=== PATIENT | female | born 1950 | race Caucasian/White ===

== ENCOUNTER 2025-05-30 10:40 | Outpatient (REF) | payer MEDICARE, SELFPAY ==
--- OUTSIDE RECORDS SUMMARY | 2021-02-02 12:28 | XMS_ITS | Encounter Summary ---
Author Organization [facility] Address [address] [place] [address] Phone Care Team Providers Care Fishing Tool Operator Name Role Phone Glendy Bender MD Primary Care Provider [phone] Encounter Details Date Type Department Care Team (Late st Contact Info) Description 02/02/2021 1:28 PM EDT Hospital Encounter [facility] [address] [place] [id number] Surjit Lopez PA [address] [place] [id number] [email or web address] Social History Tobacco Use Types Packs/Day Years Used Date Smoking Tobacco: Former Smokeless Tobacco: Never Alcohol Use Standard Drinks/Week Comments Yes 7 (1 standard drink = 0.6 oz pur e alcohol) 1 per day Education Answer Date Recorded Are you interested in more education? Not on sae e 10/20/2022 Are you concerned about learning? Not on file 10/20/2022 No 10/20/2022 No 10/20/2022 Digital Access Answer Date Recorded No 11/18/2022 No 11/18/2022 Reliable internet access at home? Not on file 11/18/2022 Device with a working camera? Not on file Comments No Sex and Gender Information Value Date Recorded Sex Assigned at Not on file Legal Sex Female 10:04 PM EDT Gender Identity Not on file Sexual Orientation Not on file documented as of this encounter Plan of Treatment Upcoming Encounters Date Type Department Care Team (Late st Contact Info) Description 09/25/2025 10:00 AM EDT Office Visit [facility] Department of Neurology [address] [place] [address] Luis Alberto Perez MBBS [address] [facility] Neurology Dept., 4th [place] [address] [email or web address] documented as of this encounter Procedures Procedure Name Priority Date/Time Associated Diagnosis Comments XR ANKLE 3 OR MORE VIEWS (LEFT) Urgent/patient waiting 02/02/2021 1:38 PM EDT Sprain of left ankle, unspecified ligament, initial encounter documented in this encounter Results * XR ANKLE 3 OR MORE VIEWS (LEFT) (02/02/2021 1:38 PM EDT) Anatomical Region Laterality Modality Ankle Left Computed Radiogr aphy 02/02/2021 1:42 PM EDT Impressions 02/02/2021 1:43 PM EDT No fracture or dislocation. Soft tissue swelling greatest over the lateral malleolus. Narrative 02/02/2021 1:43 PM EDT XR ANKLE 3 OR MORE VIEWS (LEFT) COMPARISON: FINDINGS: No fracture. Normal alignment. Symmetric ankle mortise. Normal joint spaces. Focal soft tissue swelling over the lateral malleolus. Small plantar calcaneal spur. Procedure Note Bernard Carlos MD, PhD - 02/02/2021 XR ANKLE 3 OR MORE VIEWS (LEFT) COMPARISON: FINDINGS: No fracture. Normal alignment. Symmetric ankle mortise. Normal jointspaces. Focal soft tissue swelling over the lateral malleolus. Smallplantar calcaneal spur. IMPRESSION: No fracture or dislocation. Soft tissue swelling greatest over the lateralmalleolus. Surjit JARRETT IMG XR LOWER EXTREMITY [place] Result documented in this encounter Visit Diagnoses Not on filedocumented in this encounter Care Teams Fishing Tool Operator Relationship Specialty Start Date End Date Chikersal, Samridhi, MD [address] [place] [address] [email or web address] PCP - General 10/30/19 11/12/21 documented as of this encounter Additional Source Comments The information contained in this document represents components of the legal health record. It is not the complete legal health record.[facility]
--- OUTSIDE RECORDS SUMMARY | 2024-09-09 06:30 | XMS_ITS ---
Author [facility] Address [address] [place] [address] Care Team Providers Care Caramel Cutter Machine Name Role Phone Shannan GUIDRY, Melissa Primary Care Provider Unavaila Sahil Ludwig Unavailable [phone] Medications Medication SIG (Take, Route, Frequency, Duration) Notes Start Date End Date Status Trileptal Active Vitamin B Complex Ac tive Vitamin D Active Ammonium Lactate 12 % 1 application Externally Twice a day; Duration: 30 days Active Lithobid 300 MG as directed Orally Not-Taking Gabapentin 200mg Act abad Lexapro Active Levothyroxine Sodium Active Latuda 20 MG 1 tablet Orally Once a day Active Metoprolol & Diet Manage Prod Active dilTIAZem HCl 180 mg Orally once a day; Duration: 30 day(s) Not-Taking amLODIPine Besylate Active Aspirin 81 MG 1 tablet Orally Once a day; Duration: 30 day(s) Active Xanax Not-Taking Nightsplint . . . AFO - L1930; Duration: . Not-Taking Vitamin B Complex No t-Taking Encounters Encounter Location Date Provider Diagnosis [facility] [address] [place] [address] 09/09/2024 Sahil Joe Plan Of Treatment Next Appt Details Provider Name:Sahil Joe , 08/11/2025 11:00:00 AM, [address] [place], [address], Progress Notes * Manuel RICKETTSOB:1950 ([age] yo F)Acc No.[id number]:09/09/2024 Progress Note Patient: Peggy JUNE Provider: Jaspreet Joe DPM :1950 A ge:73 Y S ex:Female Date:09/09/2024 Address:[address] [place], [place] [id number] Pcp:Melissa Campbell MD Subjective: * Chief Complaints: * * Medical History: * Medications: T aking amLODIPine Besylate , Taking Aspirin 81 MG Tablet 1 tablet Orally Once a day , Taking Gabapentin 200mg , Taking Lexapro , Taking Levothyroxine Sodium , Taking Latuda 20 MG Tablet 1 tablet Orally Once a day , Taking Metoprolol & Diet Manage Prod , Taking Trileptal , Taking Vitamin B Complex , Taking Vitamin D , Taking Ammonium Lactate 12 % Cream 1 application Externally Twice a day , Not-Taking/PRN Lithobid 300 MG Tablet Extended Release as directed Orally , Not-Taking/PRN Vitamin B Complex , Not-Taking/PRN Xanax , Not-Taking/PRN Nightsplint . . . . AFO - L1930 , Not-Taking/PRN dilTIAZem HCl 180 mg Tablet Orally once a day Objective: * Vitals: Assessment: Plan: * Treatment: * Images: * The named appointment provid er may or may not be the originator of this progress note, and it is not deemed complete until electronically signed by the appointment provider. Sign off status: Pending * Provider: Jaspreet Joe DPM Date: 0 09/09/2024 Generated for Mae allen/James/Desmond on: 1 07/31/2024 10:44 AM EST
--- OUTSIDE RECORDS SUMMARY | 2024-12-02 10:15 | XMS_ITS ---
Author Organization [facility] Address [address] [place] [address] Care Team Providers Care Title I Teacher Name Role Phone Shannan GUIDRY, Melissa Primary Care Provider UnavailSahil Escudero Unavailable [phone] Encounters Encounter Location Date Provider Diagnosis [address] [address] 12/02/2024 Sahil Joe Plan Of Treatment Next Appt Details Provider Name:Sahil Joe , 08/11/2025 11:00:00 AM, [address] [place], [address], Progress Notes * Manuel RICKETTSOB:1950 ([age] yo F)Acc No.[id number]:12/02/2024 Progress Note Patient: Peggy JUNE Provider: Jaspreet Joe DPM :1950 A ge:74 Y S ex:Female Date:12/02/2024 Address:[address] [place], [place] [id number] Pcp:Melissa Campbell MD Subjective: * Chief Complaints: * * Medical History: Objective: * Vitals: Assessment: Plan: * Treatment: * Images: * The named appointment provid er may or may not be the originator of this progress note, and it is not deemed complete until electronically signed by the appointment provider. Sign off status: Pending * Provider: Jaspreet Joe DPM Date: 0 12/02/2024 Generated for Mae allen/James/Desmond on: 1 07/31/2024 10:44 AM EST
--- OUTSIDE RECORDS SUMMARY | 2025-05-24 23:59 | XMS_ITS | Continuity of Care Document ---
Author Organization [facility] Address [address] [place] [address] [address], [address] [place] [address]- Care Team Providers Care Hat Cleaner Name Role Phone Srinivasa GUIDRY, Melissa Luu Primary Care Physic srini Encounter [facility] Date(s): 04/24/25 - 05/24/25 [facility] [address] [place] [address] Drive [address] [place], [place] [address] Encounter Type: Triage Allergies, Adverse Reactions, Alerts Substance Criticality Severity Reaction Reaction Severity Status ampicillin Active codeine diarrhea Active Bee Stings Active amoxicillin RASH Active nonsteroidal anti-inflammatory agents ON LITHIUM Act abad penicillin Eruption Active topiramate Eruption Active Topamax cant see Active Vicodin Active Immunizations Given and Recorded Vaccine Date Status Refusal Reason RSV vaccine, preF A-preF B, recombinant 08/29/24 R ecorded influenza virus vaccine, inactivated 04/10/24 Rafael rded influenza virus vaccine, inactivated 04/24/22 Rafael rded influenza virus vaccine, inactivated 04/04/21 Rafael rded influenza virus vaccine, inactivated 03/13/20 Rafael rded influenza virus vaccine, inactivated 04/23/19 Rafael rded influenza virus vaccine, inactivated 1 03/27/17 Gi waldemar influenza virus vaccine, inactivated 04/29/15 Give n influenza virus vaccine, inactivated 05/03/12 Give n influenza virus vaccine, inactivated 2 04/20/11 Gi waldemar influenza virus vaccine, inactivated 07/01/10 Give n SARS-CoV-2(COVID-19)mRNA-LNP vac(iro663) 04/10/24 Recorded zoster vaccine, inactivated 12/11/23 Recorded zoster vaccine, inactivated 3 03/21/23 Recorded Influenza Virus Vaccine (oldterm) 4 03/21/23 Recor ded Influenza Virus Vaccine (oldterm) 5 03/30/06 Given SARS-CoV-2 (COVID-19) mRNA-1273 vaccine 6 03/21/23 Recorded [id number] 12y+ bivalent booster vax 10/22/22 Recorded [id number] 12y+ bivalent booster vax 03/20/22 Recorded pneumococcal 20-valent conjugate vaccine 06/07/22 Given SARS-CoV-2 mRNA (eofdsto-yasa-knbgr) vax 10/15/21 Recorded SARS-CoV-2 (COVID-19) mRNA BNT-162b2 vac 04/24/21 Recorded SARS-CoV-2 (COVID-19) mRNA BNT-162b2 vac 09/30/20 Recorded SARS-CoV-2 (COVID-19) mRNA BNT-162b2 vac 09/04/20 Recorded pneumococcal 13-valent vaccine 7 03/04/19 Given tetanus/diphtheria/pertussis, acel(Tdap) 8 11/27/17 Given tetanus-diphtheria toxoids (Td) 9 10/23/17 Given tetanus-diphtheria toxoids (Td) 10/16/06 Given pneumococcal 23-valent vaccine 07/01/10 Given 1Result Comment: [03/27/2017] [id number] 2Admin Note: VIM given dated 02/02/11 3Result Comment: pt recieved vaccine at [facility] 4Result Comment: pt recieved vaccine at [facility] 5Admin Note: VIM 6Result Comment: pt received vaccine at [facility] pharmacy 7Result Comment: [facility]:0339-7083-24 8Result Comment: [11/27/2017] [facility] [id number] 9Result Comment: [10/23/2017] [facility]:[address]-1 Medications acetaminophen 325 mg oral tablet 975 mg, By Mouth, Every 8 hours, Refills 0, Maintenance, 08/19/24 1:40:00 PM EST, Partial fill upon patient request if the prescription is for a schedule II opioid drug. Start Date: 08/19/24 Status: Ordered Medication Dispense Status: Completed Total Allowed Fills: 1 Fills Dispensed: 0 Indications: Malignant neoplasm of unspecified part of unspecified bronchus or lung; amiodarone 200 mg oral tablet 200 mg, By Mouth, 2 times a day, Refills 0, Maintenance, 05/19/25 11:21:00 AM EST, Partial fill upon patient request if the prescription is for a schedule II opioid drug. Start Date: 05/19/25 Status: Ordered Medication Dispense Status: Completed Total Allowed Fills: 1 Fills Dispensed: 0 aspirin 81 mg oral enteric coated capsule 1 capsule = 81 mg, By Mouth, Daily, # 90 capsule, 0 Refills, Maintenance, 10/05/10 11:28:53 AM EDT Start Date: 10/05/10 Stop Date: 01/03/11 Status: Ordered Medication Dispense Status: Completed Quantity: 90.0 Unit: capsule Total Allowed Fills: 1 Fills Dispensed: 0 escitalopram 10 mg oral tablet = 10 mg, By Mouth, Daily, 0 Refills, Maintenance, 05/19/25 11:23:00 AM EST, Tablet, Partial fill upon patient request if the prescription is for a schedule II opioid drug. Start Date: 05/19/25 Status: Ordered Medication Dispense Status: Completed Total Allowed Fills: 1 Fills Dispensed: 0 gabapentin 100 mg oral capsule 200 mg, 2, capsule, By Mouth, Daily at bedtime, # 180 capsule, Refills 3, Tot. Refills 3, Maintenance, 09/30/24 11:01:00 AM EDT, Route to Pharmacy Electronically, [facility], Partial fill upon patient request if the prescription is for a schedule II opioid drug., 163, cm, 09/30/24 10:14:00 EDT, Height, 87.3, kg, 08/12/24 19:05:00 EST, Dry Weight Start Date: 09/30/24 Stop Date: 09/25/25 Status: Ordered Medication Dispense Status: Completed Quantity: 180.0 Unit: capsule Total Allowed Fills: 4 Fills Dispensed: 0 Heparin 1 mL = 5,000 units, Subcutaneous Infusion, 3 times a day, 0 Refills, Maintenance, 05/19/25 11:22:00AM EST, Injection, Partial fill upon patient request if the prescription is for a schedule II opioid drug. Start Date: 05/19/25 Status: Ordered Medication Dispense Status: Completed Total Allowed Fills: 1 Fills Dispensed: 0 High B Complex 1 tablet, By Mouth, Daily, 0 Refills, Maintenance, 02/17/16 4:08:20 PM EDT Start Date: 02/17/16 Status: Ordered Medication Dispense Status: Completed Total Allowed Fills: 1 Fills Dispensed: 0 Latuda 20 mg oral tablet 1 tablet = 20 mg, By Mouth, Daily, # 90 tablet, 0 Refills, Maintenance, 10/11/23 2:55:00 PM EDT, [facility], Partial fill upon patient request if the prescription is for a schedule II opioid drug., 165, cm, 05/31/23 11:13:00 EST, Height Start Date: 10/11/23 Status: Ordered Medication Dispense Status: Completed Quantity: 90.0 Unit: tablet Total Allowed Fills: 1 Fills Dispensed: 0 levothyroxine 0.137 mg oral tablet 1 tablet = 137 mcg, By Mouth, Daily, New dose, # 90 tablet, 3 Refills, Maintenance, 10/21/24 2:18:00PM EDT, Tablet, [facility], Partial fill upon patient request if the prescription is for a schedule II opioid drug., 163, cm, 10/21/24 13:55:00 EDT, Height, 87.3, kg, 08/12/24 19:05:00 EST, Dry Weight Start Date: 10/21/24 Status: Ordered Medication Dispense Status: Completed Quantity: 90.0 Unit: tablet Total Allowed Fills: 4 Fills Dispensed: 0 LORazepam 0.5 mg oral tablet See Instructions, PRN as needed for anxiety, 0.5 tablet By Mouth, 0 Refills, Maintenance, 08/12/24 7:56:00 PM EST, Tablet, Partial fill upon patient request if the prescription is for a schedule II opioid drug. Start Date: 08/12/24 Status: Ordered Medication Dispense Status: Completed Total Allowed Fills: 1 Fills Dispensed: 0 melatonin 3 mg oral tablet = 6 mg, By Mouth, Daily at bedtime, 0 Refills, Maintenance, 05/19/25 11:24:00 AM EST, Tablet, Partial fill upon patient request if the prescription is for a schedule II opioid drug. Start Date: 05/19/25 Status: Ordered Medication Dispense Status: Completed Total Allowed Fills: 1 Fills Dispensed: 0 metoprolol 25 mg oral tablet 25 mg, By Mouth, 2 times a day, Refills 0, Maintenance, 05/19/25 11:22:00 AM EST, Partial fill uponpatient request if the prescription is for a schedule II opioid drug. Start Date: 05/19/25 Status: Ordered Medication Dispense Status: Completed Total Allowed Fills: 1 Fills Dispensed: 0 OXcarbazepine 150 mg oral tablet 150 mg, By Mouth, Daily, Refills 0, Maintenance, 05/19/25 11:22:00 AM EST, Partial fill upon patient request if the prescription is for a schedule II opioid drug. Start Date: 05/19/25 Status: Ordered Medication Dispense Status: Completed Total Allowed Fills: 1 Fills Dispensed: 0 Vashe Topical Solution 475 mL, Topically, Every 12 hours, 0 Refills, Maintenance, Solution Start Date: 05/19/25 Status: Ordered Medication Dispense Status: Completed Total Allowed Fills: 1 Fills Dispensed: 0 Vitamin D3 = 2,000 International_Units, By Mouth, Daily, # 240 each, 0 Refills, Maintenance, 02/17/16 4:08:07 PM EDT Start Date: 02/17/16 Status: Ordered Medication Dispense Status: Completed Quantity: 240.0 Unit: each Total Allowed Fills: 1 Fills Dispensed: 0 warfarin 3 mg oral tablet = 3 mg, By Mouth, Once, take 3 mg tonight then as directed based on daily inr level, 0 Refills, Maintenance, 05/19/25 11:20:00 AM EST, Tablet, Partial fill upon patient request if the prescription isfor a schedule II opioid drug. Start Date: 05/19/25 Status: Ordered Medication Dispense Status: Completed Total Allowed Fills: 1 Fills Dispensed: 0 Problem List Condition Confirmation Course Effective Dates Status H ealth Status Informant Adenomatous polyp of ascending colon Confirmed Active Allergic rhinitis Confirmed Active Ascending aortic aneurysm Confirmed Active Depression with anxiety Confirmed Active Atherosclerosis Confirmed Active Benign hypertension Confirmed Active BPPV (benign paroxysmal positional vertigo) Confirmed Active Bipolar 2 disorder Confirmed Active Constipation Confirmed Active Chronic kidney disease, stage 3a Confirmed Active Dissection of Carotid Artery Confirmed 07/04/10 Active Family history of thoracic aortic aneurysm Confirmed Active Family history of atherosclerosis Confirmed Active Chronic GERD Confirmed Active Stress incontinence of urine Confirmed Active Headache Confirmed Active Rectocele Confirmed Active History of total lobectomy of lung Confirmed Active Excessive sleepiness Confirmed Active Hypothyroid Confirmed Active Impacted cerumen of left ear Confirmed Active Chronic anticoagulation Confirmed Active Skin cancer Confirmed Active Obese class I Confirmed Active Obstructive sleep apnea of adult 1 Confirmed Active Onychomycosis due to dermatophyte Confirmed Active Postmenopausal bleeding Confirmed Active Primary adenocarcinoma of upper lobe of left lung Confirmed 06/20/24 Active Shoulder pain, right Confirmed Active Verruca plantaris Confirmed Active 1severe Social History Social History Type Response Smoking Status Former smoker, quit more than 30 days ago; Other: QUIT 1970; entered on: 03/06/25 Sexual Orientation Self described orien tation: ; Straight or heterosexual Sex Sex Representation Female (finding) Patient Care team information Care Team Personnel Name: Katherine Macias RN Position: [facility] RN Member Role: Primary Care Nurse Name: Eryn Monahan RN Position: [facility] SN RN Member Role: Primary Care Nurse Name: Brionna Sanchez RN Position: [facility] RN Member Role: Primary Care Nurse Name: Lili Funes RN Position: [facility] RN Member Role: Primary Care Nurse Name: Linda Ambriz RN Position: [facility] RN Member Role: Primary Care Nurse Name: Srinivasa GUIDRY, Melissa Luu Position: [facility] Physician - Primary Care Member Role: PCP Address: [address] [place] [address]- Telecom: Name: Anatoly Michaud RN Position: [facility] RN Member Role: Primary Care Nurse Name: Deng Cisneros RN Position: [facility] Krunal RN Member Role: Primary Care Nurse Name: Roshan Landry RN Position: [facility] RN Member Role: Primary Care Nurse Name: Blanco Damon RN Position: [facility] RN Member Role: Primary Care Nurse Name: Nguyễn Rogers MD Position: [facility] Renal MD Member Role: [employer] Consult[employer] Physician Address: [address] [place] [address] [address] [facility] [place] [address]- Telecom: Care Team Related Persons Name: REEMA DAMON Name: ZACKPREM Name: HOMERO-RADHA CARDENAS Name: ROBBY DEL CID Insurance Providers Guarantor name: GIOVANNY [employer] Information #: 1 Payer: MEDICARE B Payer Identifier: NA Member Number: [id number] Group Number: NA Subscriber Identifier: NA Relationship to Subscriber: self Coverage Type: NA Coverage Verification Date: NA Telecom: NA Address: [facility] Information #: 2 Payer: MEDEX SECONDARY ONLY Payer Identifier: SUKI Member Number: [id number] Group Number: NA Subscriber Identifier: NA Relationship to Subscriber: self Coverage Type: Medicare Other Coverage Verification Date: Telecom: Address:
--- OUTSIDE RECORDS SUMMARY | 2025-05-30 10:44 | XMS_ITS | Encounter Summary ---
Author Organization [facility] Address [address] [address] Phone Care Team Providers Care Desk Clerks Supervisor Name Role Phone Unknown, Unknown Primary Care Provider Glendy Rebollar MD Primary Care Provider +1- [phone] Glendy Bender MD Primary Care Provider +1- [phone] Melissa Campbell MD Primary Care Provider +1- [phone] Encounter Details Date Type Department Care Team (Late st Contact Info) Description 03/17/2019 Ancillary Orders Virtual Department 30 [place] [address] Paradise Duarte, [facility] [address] [address] Breast screening Social History Tobacco Use Types Packs/Day Years Used Date Smoking Tobacco: Never Assessed Comments Unknown Sex and Gender Information Value Date Recorded Sex Assigned at Not on file Legal Sex Female 10:04 PM EDT Gender Identity Not on file Sexual Orientation Not on file documented as of this encounter Plan of Treatment Upcoming Encounters Date Type Department Care Team (Late st Contact Info) Description 09/25/2025 10:00 AM EDT Office Visit [facility] Department of Neurology [address] [place] [address] Luis Alberto Perez MBBS [address] [facility] Neurology Dept., 4th [place] [address] [email or web address] documented as of this encounter Results * BI MAMMOGRAM SCREENING WITH TOMOSYNTHESIS WITH CAD (BILATERAL) (03/25/2019 12:29 PM EDT) Anatomical Region Laterality Modality Breast Left, Breast Right, Breast Bilateral Bila teral Mammography 03/25/2019 1:44 PM EDT Impressions 03/25/2019 1:46 PM EDT Stable appearance relative to prior imaging. No findings suggestive of malignancy are seen. BI-RADS CATEGORY: 2 - Benign finding. DENSITY: There are scattered fibroglandular densities. POS - [id number] Narrative 03/25/2019 1:46 PM EDT Full-field digital mammography is obtained with computer-aided detection. Comparison with prior imaging from 01/31/2013 is made with older imaging dating back as far as 08/17/2005 also reviewed. There is scattered fibroglandular density evident in the breasts. In addition to 2-D C view imaging, tomosynthesis images are obtained in two projections of each breast. There are minor scattered dermal calcifications on the left.. No dominant soft tissue mass of concern, suspicious cluster of calcifications, significant interval skin changes, or architectural distortion is identified. Procedure Note Jimmie Alaniz MD - 03/25/2019 Full-field digital mammography is obtained with computer-aided detection.Comparison with prior imaging from 01/31/2013 is made with older imagingdating back as far as 08/17/2005 also reviewed. There is scattered fibroglandular density evident in the breasts. Inaddition to 2-D C view imaging, tomosynthesis images are obtained in twoprojections of each breast. There are minor scattered dermal calcifications on the left.. No dominantsoft tissue mass of concern, suspicious cluster of calcifications,significant interval skin changes, or architectural distortion isidentified. IMPRESSION: Stable appearance relative to prior imaging. No findings suggestive ofmalignancy are seen. BI-RADS CATEGORY: 2 - Benign finding. DENSITY: There are scattered fibroglandular densities. POS - [id number] Paradise Green CNM IMG MG EXAMS Fi nal Result documented in this encounter Visit Diagnoses Diagnosis Breast screening Breast screening, unspecified Breast screening Breast screening, unspecified documented in this encounter Care Teams Desk Clerks Supervisor Relationship Specialty Start Date End Date Unknown, Unknown, MD PCP - General 02/18/19 03/24/19 Glendy Bender MD [address] [place] [address] [email or web address] PCP - General 03/25/19 10/29/19 Glendy Bender MD [address] [facility] [address] [place] [address] [email or web address] PCP - General 10/30/19 11/12/21 Melissa Campbell MD [address] [place] [address] [email or web address] PCP - General Family Medicine 11/13/21 documented as of this encounter Additional Source Comments The information contained in this document represents components of the legal health record. It is not the complete legal health record.[facility]
--- OUTSIDE RECORDS SUMMARY | 2025-05-30 10:44 | XMS_ITS | Encounter Summary ---
Author Organization [facility] [place], Address [address] [place] [address] Phone Care Team Providers Care Fruit Loader Name Role Phone Chasity Campbell MD Primary Care Provider +1- [phone] Encounter Details Date Type Department Care Team (Late st Contact Info) Description 12/10/2024 Documentation Only [facility] [address] [place] [address] Vandana Pitts [address] [place] [address] Social History Tobacco Use Types Packs/Day Years Used Date Smoking Tobacco: Never Assessed Comments Unknown Sex and Gender Information Value Date Recorded Sex Assigned at Not on file Legal Sex Female 9:57 AM EDT Gender Identity Not on file Sexual Orientation Not on file documented as of this encounter Plan of Treatment Upcoming Encounters Date Type Department Care Team (Late st Contact Info) Description 06/29/2025 2:00 PM EST Office [facility] [place] [address] Brisa [address] [place] [phone] Zev Wu MD [address] [place] [address] [place] [address] documented as of this encounter Visit Diagnoses Not on filedocumented in this encounter Care Teams Fruit Loader Relationship Specialty Start Date End Date Chasity Campbell MD [facility] [place], [place] PCP - General Family Medicine 01/22/24 documented as of this encounter
--- OUTSIDE RECORDS SUMMARY | 2025-05-30 10:44 | XMS_ITS | Clinical Summary ---
Author Organization [facility] Address [address] [place] [address] Phone Care Team Providers Care Group Underwriter Name Role Phone Chasity Campbell MD Primary Care Provider +1- [phone] Allergies Active Allergy Reactions Criticality Noted Date Comments Amoxicillin Other (see comments) 08/08/2010 Other Reaction(s): RASH Codeine 09/20/2021 Other Reaction(s): diarrhea Other reaction(s): diarrhea Ibuprofen 09/19/2021 Other Reaction(s): Unknown Other reaction(s): Unknown Outside Source Comment: Other reaction(s): Unknown Topiramate Rash Low 08/07/2010 Other Reaction(s): cant see Medications amLODIPine (NORVASC) 2.5 MG tablet Take 2.5 mg by mouth 1 (one) time each day Active METOPROLOL & DIET MANAGE PROD PO 25 capsules by Other route 1 (one) time daily 30 minutes after same meal Active Lithobid 300 MG CR tablet Take 300 mg by mouth 1 (one) time each day 09/24/2023 Active escitalopram (LEXAPRO) 10 MG tablet Take 10 mg by mouth 11/25/2020 Active gabapentin (NEURONTIN) 100 MG capsule Take 100 mg by mouth 1 (one) time each day 2 tabs day. Active Active Problems Problem Noted Date Diagnosed Date [place] adverse reaction <Sequela> 12/19/2024 Adenomatous polyp of colon 03/27/2024 Allergic rhinitis 03/27/2024 Aneurysm of ascending aorta 03/27/2024 Anxiety 03/27/2024 Arteriosclerotic vascular disease 03/27/2024 Benign hypertension 03/27/2024 Benign paroxysmal positional vertigo 03/27/2024 Bipolar II disorder 03/27/2024 Gastroesophageal reflux disease 03/27/2024 Family history of aneurysm of thoracic aorta 08/2023 Obstructive sleep apnea of adult 03/27/2024 Overview (03/27/2024): severe Obese class I 03/27/2024 Nodule of lung 03/27/2024 Malignant neoplasm of skin 03/27/2024 Hypothyroidism 03/27/2024 Stage 3a chronic kidney disease 03/27/2024 Immunizations Immunization Administration Dates Next Due Influenza (IM) Preservative Free 04/12/2021 Influenza Split High Dose Pr eservative Free IM 03/13/2020,04/23/2019 Influenza Vaccine, Quadrivalent, Adjuvanted 03/25 Influenza Whole 03/21/2023,03/30/2006 Influenza, Unspecified 04/20/2011 Moderna SARS-COV-2 03/21/2023,10/15/2021 Pfizer SARS-COV-2 04/24/2021,09/30/2020,09/05/19 21 Pneumococcal Conjugate 13-Valent 03/04/2019 Pneumococcal Polysaccharide 07/01/2010 SARS-CoV-2, Unspecified 10/22/2022,03/20/2022 Shingrix 12/11/2023,03/21/2023 Td, Unspecified 10/23/2017,10/16/2006 Tdap 11/27/2017 Social History Tobacco Use Types Packs/Day Years Used Date Smoking Tobacco: Never Assessed Comments Unknown Sex and Gender Information Value Date Recorded Sex Assigned at Not on file Legal Sex Female 9:57 AM EDT Gender Identity Not on file Sexual Orientation Not on file Last Filed Vital Signs Vital Sign Reading Time Taken Comments Blood Pressure 124/70 03/27/2024 3:07 PM EDT Pulse - - Temperature - - Respiratory Rate - - Oxygen Saturation 98% 03/27/2024 3:07 PM EDT Inhaled Oxygen Concentration - - Weight 87.6 kg (193 lb 3.2 oz) 03/27/2024 3:07 P M EDT Height - - Body Mass Index - - Plan of Treatment Upcoming Encounters Date Type Department Care Team (Late st Contact Info) Description 06/29/2025 2:00 PM EST Office Visit [facility] [place] [place] [address] [place] [address] Zev Wu MD [address] [place] [address] Health Maintenance Due Date Last Done Comments Pneumococcal Vaccine: 50+ Years (3 of 3 - PCV20 or PCV21) 04/29/2019 03/04/2019, 07/01/2010 Influenza Vaccine (#1) 2025 3, 04/12/2021, 04/04/2021, Additional history exists Hepatitis B Vaccine Aged Out No longe r eligible based on patient's age to complete this topic Insurance Medicare [facility] Medicare [facility] Medicare [facility] Care Teams Group Underwriter Relationship Specialty Start Date End Date Chasity Campbell MD [address] [place] [address] PCP - General Family Medicine 01/22/24
--- OUTSIDE RECORDS SUMMARY | 2025-05-30 10:44 | XMS_ITS | Encounter Summary ---
Author Organization [facility] [place], Address [address] [place] [address] Phone Care Team Providers Care Rpg Programmer Analyst Name Role Phone Chasity Campbell MD Primary Care Provider +1- [phone] Encounter Details Date Type Department Care Team (Late st Contact Info) Description 11/05/2024 Documentation Only [facility] [address] [place] [address] [place] [address] [place] [phone] Social History Tobacco Use Types Packs/Day [...] Visit [facility] [place] [address] Brisa [address] [place] [phone] Zev Wu MD [address] [place] [address] Dr. [place] [address] documented as of this encounter Visit Diagnoses Not on filedocumented in this encounter Care Teams Rpg Programmer Analyst Relationship Specialty Start Date End Date Chasity Campbell MD [facility] [place], [place] PCP - General Family Medicine 01/22/24 documented as of this encounter
--- OUTSIDE RECORDS SUMMARY | 2025-05-30 10:44 | XMS_ITS | Encounter Summary ---
Author Organization [facility] [place], Address [address] [place] [address] Phone Care Team Providers Care Technical Internship Name Role Phone Chasity Campbell MD Primary Care Provider +1- [phone] Encounter Details Date Type Department Care Team (Late st Contact Info) Description 01/01/2025 Documentation Only [facility] [address] [place] [address] Nila Jha [address] [place] [address] Social History Tobacco Use Types [...] Visit [facility] [address] Brisa [address] [place] [phone] Zev Wu MD [address] [place] [address] [place] [address] documented as of this encounter Visit Diagnoses Not on filedocumented in this encounter Care Teams Technical Internship Relationship Specialty Start Date End Date Chasity Campbell MD [facility] [place], [place] PCP - General Family Medicine 01/22/24 documented as of this encounter
--- OUTSIDE RECORDS SUMMARY | 2025-05-30 10:44 | XMS_ITS | Encounter Summary ---
Author Organization [facility] Address [address] [address] Phone Care Team Providers Care Reinsurance Claims Analyst Name Role Phone Jim Marroquin MD Primary Care Provider +1- [phone] Unknown, Unknown Primary Care Provider Glendy Rebollar MD Primary Care Provider +- [phone] Glendy Bender MD Primary Care Provider +- [phone] Melissa Campbell MD Primary Care Provider +1- [phone] Encounter Details Date Type Department Care Team (Late st Contact Info) Description 02/17/2019 Ancillary Orders Virtual Department 30 [place] [address] Paradise Duarte, [address] [address] DUB (dysfunctional uterine bleeding) Social History Tobacco Use Types Packs/Day Years Used Date Smoking Tobacco: Never Assessed Comments Unknown Sex and Gender Information Value Date Recorded Sex Assigned at Not on file Legal Sex Female 10:04 PM EDT Gender Identity Not on file Sexual Orientation Not on file documented as of this encounter Plan of Treatment Upcoming Encounters Date Type Department Care Team (Late Contact Info) Description 09/25/2025 10:00 AM EDT Office Visit [facility] Department of Neurology [address] [place] [address] Luis Alberto Perez MBBS 60 [facility] Neurology Dept., 4th [place] [address] [email or web address] documented as of this encounter Results * US PELVIS TRANSABDOMINAL PLUS TRANSVAGINAL (02/18/2019 2:45 PM EDT) Anatomical Region Laterality Modality Pelvis, Uterus/Adnexa Ultrasound 02/18/2019 2:57 PM EDT Impressions 02/18/2019 3:00 PM EDT Significant thickening of the endometrium which may be related to hyperplasia but could obscure a small mass. Hysteroscopy or hysterosonography could be performed for further evaluation, as clinically warranted. No other significant uterine or right adnexal pathology. Left ovary not visualized. POS - [id number] Narrative 02/18/2019 3:00 PM EDT COMPARISON: None FINDINGS: Transabdominal and endovaginal scanning was performed. Uterus is in anteverted midline position and within upper limits normal for patient age in size measuring 8.7 x 4.7 x 5.9 cm. Uterine parenchymal echo-texture is homogeneous. Endometrial echocomplex is thickened at 2.2 cm in width. No discrete endometrial mass or polyp identified. Right ovary is within normal limits in size measuring 2.0 x 1.4 x 2.3 cm (3.4 cc) without solid mass or dominant cyst apparent. Right-sided ovarian perfusion is documented on color Doppler imaging. Left ovary could not be visualized on transabdominal or endovaginal technique. No free fluid apparent in the cul-de-sac. Procedure Note Merry Hoffman MD - 02/18/2019 COMPARISON: None FINDINGS: Transabdominal and endovaginal scanning was performed. Uterus is inanteverted midline position and within upper limits normal for patient agein size measuring 8.7 x 4.7 x 5.9 cm. Uterine parenchymal echo-texture ishomogeneous. Endometrial echocomplex is thickened at 2.2 cm in width. Nodiscrete endometrial mass or polyp identified. Right ovary is within normal limits in size measuring 2.0 x 1.4 x 2.3 cm(3.4 cc) without solid mass or dominant cyst apparent. Right-sidedovarian perfusion is documented on color Doppler imaging. Left ovarycould not be visualized on transabdominal or endovaginal technique. Nofree fluid apparent in the cul-de-sac. IMPRESSION: Significant thickening of the endometrium which may be related tohyperplasia but could obscure a small mass. Hysteroscopy orhysterosonography could be performed for further evaluation, as clinicallywarranted. No other significant uterine or right adnexal pathology. Leftovary not visualized. POS - [id number] us Paradise Green CNM IMG US PELVIS Fi nal Result documented in this encounter Visit Diagnoses Diagnosis DUB (dysfunctional uterine bleeding) Other disorder of menstruation and other abnormal bleeding from female genital tract DUB (dysfunctional uterine bleeding) Other disorder of menstruation and other abnormal bleeding from female genital tract documented in this encounter Care Teams Reinsurance Claims Analyst Relationship Specialty Start Date End [place] [address] [email or web address] PCP - General 06/28/17 02/17/19 Unknown, [place], [place] [address] PCP - General 02/18/19 03/24/19 Glendy Bender MD [address] [address] [email or web address] PCP - General 03/25/19 10/29/19 Glendy Bender MD [address] [address] [email or web address] PCP - General 10/30/19 11/12/21 Melissa Campbell MD [address] [place] [id number] [email or web address] PCP - General Family Medicine 11/13/21 documented as of this encounter Additional Source Comments The information contained in this document represents components of the legal health record. It is not the complete legal health record.[facility]
--- OUTSIDE RECORDS SUMMARY | 2025-05-30 10:45 | XMS_ITS | Clinical Summary ---
Author Organization [facility] Address [address] [address] Phone Care Team Providers Care Microfilmer Name Role Phone Melissa Campbell MD Primary Care Provider [phone] Allergies Active Allergy Reactions Criticality Noted Date Comments Amoxicillin Other (See Comments) 08/08/2010 Ampicillin Rash Low 10/07/2017 Codeine 09/20/2021 Other reaction(s): diarrhea Ibuprofen 09/20/2021 Other reaction(s): Unknown Penicillin Rash Low 07/26/2016 Topiramate Rash Low 08/08/2010 Medications amLODIPine (NORVASC) 2.5 MG tablet 01/24/2021 Active gabapentin (NEURONTIN) 100 MG capsule Take 200 mg by mouth nightly at bedtime. 11/24/2020 Active metoprolol succinate (TOPROL-XL) 25 MG 24 hr tablet 11/30/2020 Act abad aspirin 81 MG EC tablet Take 81 mg by mouth. Active escitalopram oxalate (LEXAPRO) 10 MG tablet 11/25/2020 Active OXcarbazepine (TRILEPTAL) 150 MG tablet 11/25/2020 Active vit B complex 100 no.2/herbs (VITAMIN B COMPLEX 100 2-HERBS ORAL) Active lithium (LITHOBID) 300 MG ER tablet as directed. Acti ve lurasidone (LATUDA) 20 mg Tab 1 tablet. Active levothyroxine (SYNTHROID, LEVOTHROID) 75 MCG tablet 11/18/2021 Active cholecalciferol (VITAMIN D3) 25 MCG (1,000 unit) tablet Take 1,000 Units by mouth daily. Active pravastatin (PRAVACHOL) 10 MG tablet Take 10 mg by mouth. 12/05/2022 Active Active Problems No known active problems Immunizations Immunization Administration Dates Next Due COVID-19 (Pre-04/16) Pfizer Vaccine, Bivalent 12+ 10/22/2022,03/20/2022 COVID-19 (Pre-04/16) Pfizer Vaccine, mRNA, jeremy-sucrose, PF 10/15/2021 INFLUENZA, SPLIT VIRUS, TRIVALENT PF 04/12/2021 INFLUENZA, SPLIT VIRUS, TRIV ALENT W/ PRESERVATIVE IM 04/24/2022,04/04/2021,03/13/2020,04/23,03/27/2017,04/29/2015,05/03/2012 ,04/20/2011,07/01/2010 Influenza High-Dose Quadriva lent Preservative Free IM 04/24/2022 Influenza High-Dose Trivalen t Preservative Free IM 03/13/2020,04/23/2019 Influenza Quadrivalent Adjuv anted Preservative Free IM 04/04/2021 Influenza, whole 03/30/2006 Pneumococcal conjugate PCV13 03/04/2019 Pneumococcal conjugate PCV20 06/07/2022 Pneumococcal polysaccharide PPSV23 07/01/2010 Td, unspecified formulation 10/23/2017, 7 Tdap 11/27/2017 Family History Medical History Relation Comments Breast cancer Paternal Aunt Breast cancer Paternal Cousin Relation Status Comments Paternal Aunt Paternal Cousin Social History Tobacco Use Types Packs/Day Years Used Date Smoking Tobacco: Former Smokeless Tobacco: Never Tobacco Cessation:Counseling Given: Not Answered Alcohol Use Standard Drinks/Week Comments Yes 7 [...] Sign Reading Time Taken Comments Blood Pressure 131/81 02/07/2023 8:48 AM EDT Pulse 60 02/07/2023 8:48 AM EDT Temperature 36.8 C (98.3 F) 02/07/2023 8:48 AM EDT Respiratory Rate 18 02/07/2023 8:48 AM EDT Oxygen Saturation 97% 02/07/2023 8:48 AM EDT Inhaled Oxygen Concentration - - Weight 84.8 kg (187 lb) 02/07/2023 8:48 AM EDT Height 164.5 cm (5' 4.76 ) 11/13/2021 3:29 PM ED T Body Mass Index 31.35 11/13/2021 3:29 PM EDT Plan of Treatment Upcoming Encounters Date Type Department Care Team (Late st Contact Info) Description 09/25/2025 10:00 AM EDT Office Visit [facility]' Department of Neurology [address] [place] [address] Luis Alberto Perez MBBS 60 [facility] Neurology Dept., 4th floor [place] [id number] [email or web address] Health Maintenance Due Date Last Done Comments LIPID PANEL 1948 DEPRESSION SCREENING 1960 SMOKING Hx and SMOKELESS TOBACCO SCREENING 1961 HEPATITIS C SCREENING 1966 ZOSTER VACCINES (1 of 2) 1998 OSTEOPOROSIS SCREENING INITIAL (ONE-TIME) 2013 BLOOD PRESSURE 08/10/2023 02/07/2023 RSV VACCINE (1 - 1-dose 75+ series) 11/02/2023 INFLUENZA VACCINE (#1) 2025 2, 04/24/2022, 04/12/2021, Additional history exists COVID-19 VACCINE ( season) 2025 10/22/2022, 03/20/2022, 10/15/2021, Additional history exists CREATININE LEVEL 08/20/2025 08/20/2024 LITHIUM LEVEL 08/20/2025 08/20/2024 TSH LEVEL 08/20/2025 08/20/2024 Adult Td,Tdap Booster 11/28/2027 11/27/2017 , 10/23/2017, 10/16/2006 PNEUMOCOCCAL VACCINES (50+ years) Completed 06/07/2022, 03/04/2019, 07/01/2010 HEPATITIS A VACCINES Aged Out No long er eligible based on patient's age to complete this topic HIB VACCINES Aged Out No longer eligi ble based on patient's age to complete this topic MENINGOCOCCAL VACCINES (ACWY) Aged Out No longer eligible based on patient's age to complete this topic MENINGOCOCCAL VACCINES (B) Aged Out N o longer eligible based on patient's age to complete this topic Medical Devices Not on file Procedures Procedure Name Priority Date/Time Associated Diagnosis Comments TSH WITH REFLEX Routine 08/20/2024 9:00 AM EST Screening for unspecified condition LITHIUM LEVEL Routine 08/20/2024 9:00 AM EST Screening for unspecified condition COMPREHENSIVE METABOLIC PANEL (CMP) Routine 08/20/2024 9:00 AM EST Screening for unspecified condition from Last 3 Months or Most Recently Relevant to Health Maintenance Results * (ABNORMAL) Comprehensive metabolic panel (08/20/2024 9:00 AM EST) SODIUM 142 133 - 146 mmol/L [facility] POTASSIUM 4.7 3.3 - 5.1 mmol/L [facility] CHLORIDE 103 96 - 108 mmol/L [facility] CO2 27 21 - 35 mmol/L [facility] BUN 20(H) 6 - 19 mg/dL [facility] CREATININE 1.40 0.5 - 1.5 mg/dL [facility] GLUCOSE 131(H) 70 - 99 mg/dL [facility] ALBUMIN 3.7(L) 3.9 - 4.8 g/dL [facility] TOTAL PROTEIN 5.8(L) 6.5 - 8.0 g/dL [facility] CALCIUM 10.0 8.4 - 10.3 mg/dL [facility] ALKALINE PHOSPHATASE 185(H) 39 - 117 U/L [facility] TOTAL BILIRUBIN 0.4 0.0 - 1.2 mg/dL [facility] AST 38(H) 0 - 37 U/L [facility] ALT 85(H) 0 - 40 U/L [facility] GLOBULIN 2.1 1 - 4.8 g/dL [facility] EGFR 39(L) >59 mL/min/1.7 3m2 [facility] Comment:Estimated glomerular filtration rate calculated using the CKD-EPI refit equation. ANION GAP 17 10 - 20 mmol/L [facility] Blood 08/20/2024 9:00 AM EST 08/20/2024 10:02 AM EST us Mando Palacios MD LAB BLOOD BKR ORDERABLES Final Result Performing Organization Address [facility] Co de Phone Number [address] [address] * (ABNORMAL) TSH with reflex (08/20/2024 9:00 AM EST) TSH 7.68(H) 0.27 - 4.20 uIU/mL [facility] Blood 08/20/2024 9:00 AM EST 08/20/2024 10:02 AM EST us Mando Palacios MD LAB BLOOD BKR ORDERABLES Final Result Performing Organization Address [facility] Co de Phone Number [address] [address] * (ABNORMAL) [place] level (08/20/2024 9:00 AM EST) LITHIUM 0.38(L) 0.5 - 1.00 mmol/L [facility] Blood 08/20/2024 9:00 AM EST 08/20/2024 10:02 AM EST us Mando Palacios MD LAB BLOOD BKR ORDERABLES Final Result Performing Organization Address [facility]/ZIP Co de Phone Number [address] [address] from Last 3 Months or Most Recently Relevant to Health Maintenance Insurance MEDICARE PART A & B [employer] SUPPLEMENT MEDICARE PART A & B [employer] SUPPLEMENT MEDICARE PART A & [place] [employer] MEDEX SUPPLEMENT MEDICARE PART A & B [employer] MEDEX SUPPLEMENT MEDICARE PART A & B [employer] MEDEX SUPPLEMENT MEDICARE PART A & B [employer] MEDEX SUPPLEMENT MEDICARE PART A & B [employer]EX SUPPLEMENT MEDICARE PART A & B [employer]EX SUPPLEMENT MEDICARE PART A & B [employer] MEDEX SUPPLEMENT Care Teams Microfilmer Relationship Specialty Start Date End Date Melissa Campbell MD [address] [place], [place] [id number] [email or web address] PCP - General Family Medicine 11/13/21 Additional Source Comments The information contained in this document represents components of the legal health record. It is not the complete legal health record.[facility]
--- OUTSIDE RECORDS SUMMARY | 2025-05-30 10:45 | XMS_ITS | Encounter Summary ---
Author Organization [facility] Address [address] [address] Phone Care Team Providers Care Hat Blocking Machine Operator Name Role Phone Melissa Campbell MD Primary Care Provider [phone] Encounter Details Date Type Department Care Team (Late st Contact Info) Description 12/29/2021 Procedure Pass [facility] Endoscopy Admitting Dept Virtual Department [address] [place] [id number] Social History Tobacco Use Types Packs/Day Years Used Date Smoking Tobacco: Former Smokeless Tobacco: Never Alcohol Use Standard Drinks/Week Comments Yes 7 (1 standard drink = 0.6 oz pur e alcohol) 1 per day Comments No Sex and Gender Information Value Date Recorded Sex Assigned at Not on file Legal Sex Female 10:04 PM EDT Gender Identity Not on file Sexual Orientation Not on file documented as of this encounter Plan of Treatment Upcoming Encounters Date Type Department Care Team (Late Contact Info) Description 09/25/2025 10:00 AM EDT Office Visit [facility]' Department of Neurology [address] [place] [address] Luis Alberto Perez MBBS 60 [facility] Neurology Dept., 4th [place] [address] [email or web address] documented as of this encounter Visit Diagnoses Not on filedocumented in this encounter Care Teams Hat Blocking Machine Operator Relationship Specialty Start Date End Date Melissa Campbell MD [address] [place] [address] [email or web address] PCP - General Family Medicine 11/13/21 documented as of this encounter Additional Source Comments The information contained in this document represents components of the legal health record. It is not the complete legal health record.[facility]
--- OUTSIDE RECORDS SUMMARY | 2025-05-30 10:45 | XMS_ITS | Patient Health Record ---
Author Organization [facility] Address [address] [place] [address] Care Team Providers Care Grommet Worker Name Role Phone Shannan GUIDRY, Melissa Primary Care Provider Sahil Phan Unavailable [phone] Allergies Allergen (clinical drug ingredient) Drug/Non Drug Allergy documented on EMR Reaction Allergy Type Onset Date Status ibuprofen Advil Unknown Drug Allergy Active amoxicillin Amoxicillin Unknown Drug Allergy Act abad ampicillin Ampicillin Unknown Drug Allergy Activ e codeine Codeine diarrhea Drug Allergy Active Reason For Referral No Information Medications Medication SIG (Take, Route, Frequency, Duration) Notes Start Date End Date Status Vitamin D Active Warfarin Sodium 2.5 MG Oral; Duration: 30 Days Active Ammonium Lactate 12 % 1 application Externally to affected areas of dry skin to feet except for between the toes Twice a day; Duration: 30 days Active Metoprolol & Diet Manage Prod Not-Taking Trileptal Not-Taking Xanax Not-Taking dilTIAZem HCl 180 mg Orally once a day; Duration: 30 day(s) Not-Taking LORazepam Active amLODIPine Besylate Active Aspirin 81 MG 1 tablet Orally Once a day; Duration: 30 day(s) Active Gabapentin 200mg Act abad Lexapro Active Levothyroxine Sodium Active Latuda 20 MG 1 tablet Orally Once a day Active Vitamin B Complex Ac tive Immunizations Vaccine Route Administration Date Status Comme nts COVID-19 Pfizer BioNTech Vaccine Unknown 04/24/2021 Administered 1st 09/04/2020 2nd 09/30/2020 Influenza Unknown 04/12/2022 Administered Influenza Unknown 02/24/2024 Administered Influenza Unknown 02/23/2025 Administered Social History Tobacco Use: Social History Observation Description Date Details (start date - stop date) Never Smoker NA - NA Tobacco use other than smoking: Question Answer Notes Are you an other tobacco user? No Tobacco Control (Standard) Question Answer Notes Tobacco use: Nonsmoker Additional Findings: Tobacco non-user Current no nsmoker AUDIT-C (Standard) Question Answer Notes Did you have a drink containing alcohol in the p ast year? No Points 0 Interpretation Negative Problems Problem Type SNOMED Code ICD Code Onset Dates Problem Status W/U Status Risk Notes Problem Plantar wart (23227391) Plantar wart (B07.0) Active confirmed Problem Tinea unguium (216446377) Tinea unguium (B35.1) Active confirmed Vital Signs Blood pressure diastolic 72 mm Hg 05/08/2025 Height 5ft4in in 05/08/2025 Blood pressure systolic 123 mm Hg 05/08/2025 Weight 174 lbs 05/08/2025 BMI 29.86 kg/m2 05/08/2025 Procedures Procedure Date Ordered Date Performed Result Body Sit e 03236-EEIHJZG NAIL, 6 OR MORE 06/03/2024 N/A 30121-Ijuf Destruction, 1-06/03/2024 N/A 25952-Jverbrpl Plate 06/03/2024 N/A 69079-RQXGGSQ NAIL, 6 OR MORE 11/18/2024 N/A 99084-Wjdj Destruction, 1-11/18/2024 N/A 79678-Ogumatro Plate 11/18/2024 N/A 37180-GGUEJRX NAIL, 6 OR MORE 02/24/2025 N/A 06201-Bvgx Destruction, 1-02/24/2025 N/A 76117-JERZLUZ NAIL, 6 OR MORE 05/08/2025 N/A 41117-Tkfjpyos Plate 05/08/2025 N/A Encounters Encounter [facility] [address] [facility] Sahil Joe Tinea unguium B35.1 ; Plantar wart B07.0 ; Pain in right toe(s) M79.674 ; Pain in left toe(s) M79.675 ; Ingrown nail L60.0 and Left foot pain M79.[address] [facility] [address] 11/18/2024 Sahil Joe Tinea unguium B35.1 ; Plantar wart B07.0 ; Pain in right toe(s) M79.674 ; Pain in left toe(s) M79.675 ; Left foot pain M79.672 and Ingrown nail L60.[address] [address] 02/24/2025 Sahil Joe Tinea unguium B35.1 ; Plantar wart B07.0 ; Pain in right toe(s) M79.674 ; Pain in left toe(s) M79.675 and Left foot pain M79.[address] [address] 05/08/2025 Sahil Joe Tinea unguium B35.1 ; Plantar wart B07.0 ; Pain in right toe(s) M79.674 ; Pain in left toe(s) M79.675 ; Ingrown nail L60.0 and Xerosis of skin L85.[address] [address] 09/09/2024 Sahil Joe [address] [address] 10/21/2024 Sahilsabina Joe [address] [address] 05/07/2025 Sahil Joe Assessments Encounter Date Diagnosis (ICD Code) Assessment Notes Treatment Notes Treatment Clinical Notes Section Notes 06/03/2024 Plantar wart (ICD-10 - B07.0) 06/03/2024 Tinea unguium (ICD-10 - B35.1) 11/18/2024 Plantar wart (ICD-10 - B07.0) 11/18/2024 Tinea unguium (ICD-10 - B35.1) 02/24/2025 Plantar wart (ICD-10 - B07.0) 02/24/2025 Tinea unguium (ICD-10 - B35.1) 05/08/2025 Plantar wart (ICD-10 - B07.0) 05/08/2025 Tinea unguium (ICD-10 - B35.1) 05/08/2025 Pain in right toe(s) (ICD-10 - M79.674) 02/24/2025 Pain in right toe(s) (ICD-10 - M79.674) 11/18/2024 Pain in right toe(s) (ICD-10 - M79.674) 06/03/2024 Pain in right toe(s) (ICD-10 - M79.674) 06/03/2024 Pain in left toe(s) (ICD-10 - M79.675) 11/18/2024 Pain in left toe(s) (ICD-10 - M79.675) 02/24/2025 Pain in left toe(s) (ICD-10 - M79.675) 05/08/2025 Pain in left toe(s) (ICD-10 - M79.675) 05/08/2025 Ingrown nail (ICD-10 - L60.0) 11/18/2024 Left foot pain (ICD-10 - M79.672) 02/24/2025 Left foot pain (ICD-10 - M79.672) 06/03/2024 Ingrown nail (ICD-10 - L60.0) 06/03/2024 Left foot pain (ICD-10 - M79.672) 11/18/2024 Ingrown nail (ICD-10 - L60.0) 05/08/2025 Xerosis of skin (ICD-10 - L85.3) Plan Of Treatment Pending Test Test Name Order Date 87117-EVYSSFV NAIL, 6 OR MORE 11/25/2013 63284-RJZKXTA NAIL, 6 OR MORE 02/27/2014 24261-FOQHIUU NAIL, 6 OR MORE 10/20/2014 19996-DRKBTFL NAIL, 6 OR MORE 01/19/2015 07248-DQFQBIL NAIL, 6 OR MORE 05/28/2015 16394-OCEMJYL NAIL, 6 OR MORE 08/27/2015 23524-ETJHQWB NAIL, 6 OR MORE 03/03/2016 85428-EJQKWAL NAIL, 6 OR MORE 06/02/2016 87209-RAREMOS NAIL, 6 OR MORE 09/01/2016 45402-ADNVDDD NAIL, 6 OR MORE 11/07/2016 70707-EKMMWPM NAIL, 6 OR MORE 01/30/2017 06920-UCPSBMS NAIL, 6 OR MORE 05/01/2017 61790-FSYFDXF NAIL, 6 OR MORE 07/17/2017 60519-FUIWFQW NAIL, 6 OR MORE 10/19/2017 11097-JXRCBEY NAIL, 6 OR MORE 01/18/2018 30655-IAHMWPG NAIL, 6 OR MORE 04/16/2018 64379-KFRHHZS NAIL, 6 OR MORE 07/23/2018 46863-LKUEFLC NAIL, 6 OR MORE 09/24/2018 70524-LTEYHDQ NAIL, 6 OR MORE 12/10/2018 09462-HNBWQVQ NAIL, 6 OR MORE 11/28/2019 98643-NGLWMAX NAIL, 6 OR MORE 02/06/2020 00862-PEKWKQT NAIL, 6 OR MORE 05/05/2020 20998-JSGEFHT NAIL, 6 OR MORE 07/13/2020 99043-ZAPQISS NAIL, 6 OR MORE 09/21/2020 01825-AREQSWB NAIL, 6 OR MORE 11/30/2020 08324-FSIFWDX NAIL, 6 OR MORE 02/08/2021 96239-FLTWHEW NAIL, 6 OR MORE 04/26/2021 15452-WDIFWYL NAIL, 6 OR MORE 07/12/2021 78370-IFLGTLS NAIL, 6 OR MORE 09/20/2021 38112-LXIAJOG NAIL, 6 OR MORE 12/09/2021 55504-ATNSMYR NAIL, 6 OR MORE 02/24/2022 15423-ELZWMLR NAIL, 6 OR MORE 05/23/2022 64130-NBSWXZB NAIL, 6 OR MORE 07/25/2022 54963-BVUKDYV NAIL, 6 OR MORE 10/03/2022 23517-SIMTWDP NAIL, 6 OR MORE 12/15/2022 41261-DFVCAXA NAIL, 6 OR MORE 03/09/2023 30251-SOZHVNK NAIL, 6 OR MORE 05/15/2023 63307-RVRCGUK NAIL, 6 OR MORE 07/31/2023 33378-THJUXHE NAIL, 6 OR MORE 10/09/2023 88031-VVGGFWU NAIL, 6 OR MORE 12/21/2023 43069-MFNRIHK NAIL, 6 OR MORE 03/07/2024 02021-KGSEUCS NAIL, 6 OR MORE 06/03/2024 23106-ZUYLQXU NAIL, 6 OR MORE 11/18/2024 86852-SDZFYRZ NAIL, 6 OR MORE 02/24/2025 83470-UHTJWGO NAIL, 6 OR MORE 05/08/2025 87158-Oqcc Destruction, -14 09/20/2021 02148-Pnjw Destruction, -02/24/2025 65070-Dvbi Destruction, 07-0811/18/2024 90898-Cxxo Destruction, 07-0806/03/2024 41451-Hgat Destruction, 07-0803/07/2024 77110-Ixaq Destruction, 07-0812/21/2023 33137-Qrnq Destruction, 07-0810/09/2023 08989-Jhdw Destruction, 07-0807/31/2023 66085-Qzdj Destruction, 07-0805/15/2023 42450-Kdmo Destruction, 07-0803/09/2023 75239-Irnh Destruction, 07-0812/15/2022 83448-Opmd Destruction, 07-0810/03/2022 62735-Egzw Destruction, 07-0807/25/2022 75367-Linb Destruction, 07-0805/23/2022 58447-Ncms Destruction, 07-0802/24/2022 94858-Cbbs Destruction, 07-0812/09/2021 02289-Gxbd Destruction, 07-0804/26/2021 27577-Xsaz Destruction, 07-0807/12/2021 95129-Eysz Destruction, 07-0811/30/2020 93913-Ockm Destruction, 07-0802/08/2021 75682-Nxfg Destruction, 07-0807/13/2020 49963-Iwle Destruction, 07-0809/21/2020 92373-Ceeu Destruction, 07-0802/06/2020 10869-Nydd Destruction, 07-0805/05/2020 32309-Vykc Destruction, -07/23/2018 75437-Vmxm Destruction, 07-0811/28/2019 83360-Vffk Destruction, 07-0812/10/2018 86949-Nhyp Destruction, 07-0809/24/2018 85821-Pzdc Destruction, 07-0804/16/2018 04657-Kpbj Destruction, 07-0810/19/2017 00012-Ibwc Destruction, 07-0801/18/2018 43292-Zkkf Destruction, 07-0807/17/2017 86707-Nyjc Destruction, 07-0801/30/2017 01478-Mdby Destruction, 07-0805/01/2017 92637-Wgux Destruction, 07-0810/20/2014 57464-Dcnz Destruction, 07-0805/28/2015 58539-Aato Destruction, 07-0809/01/2016 88047-Gdbx Destruction, 07-0811/07/2016 49645-Srrl Destruction, 07-0806/06/2013 87605-Eebi Destruction, 07-0811/25/2013 81819-Oejr Destruction, 07-0801/19/2015 24888-Bjvu Destruction, 07-0802/27/2014 13394-Erjc Destruction, 07-0803/07/2013 05769-Gdurourr Plate 06/06/2013 19442-Qqgxgnhg Plate 11/25/2013 47302-Fnxzfjbr Plate 11/29/2012 86259-Qicwhkwz Plate 03/07/2013 37704-Xjxfpdqz Plate 02/27/2014 70486-Mwudrmil Plate 10/20/2014 67588-Rjztltvb Plate 01/19/2015 67956-Tccmxjzk Plate 05/28/2015 32169-Qfagcsgg Plate 09/01/2016 19264-Zylenmld Plate 05/01/2017 79288-Llydoouf Plate 01/30/2017 85053-Qzkmizlj Plate 07/17/2017 18849-Jgzmfbpy Plate 10/19/2017 20973-Kdavcfjr Plate 01/18/2018 97301-Zhdpchpl Plate 07/23/2018 75089-Zqovpzez Plate 09/24/2018 91107-Vhdzugyi Plate 04/16/2018 79207-Ifgmelrp Plate 12/10/2018 89249-Ytxgfjfc Plate 10/17/2019 49720-Orjqsrgi Plate 11/28/2019 25200-Idtiagrb Plate 02/06/2020 31180-Hqmfrjex Plate 05/05/2020 52772-Tcoecwid Plate 11/30/2020 72524-Dshuednk Plate 09/21/2020 51654-Vqbdnxwi Plate 07/13/2020 81205-Nfypafhn Plate 02/08/2021 06563-Evyeqmmr Plate 07/12/2021 01700-Bfllmbbu Plate 04/26/2021 66824-Irnjquyk Plate 09/20/2021 15620-Sjkehumq Plate 12/09/2021 28202-Ehwmvwwh Plate 02/24/2022 16605-Zlifuhhz Plate 05/23/2022 50818-Ifgaodht Plate 07/25/2022 45739-Axixfsqv Plate 10/03/2022 66340-Cmdujmxa Plate 12/15/2022 53877-Thbtexco Plate 03/09/2023 30816-Idnxofgx Plate 07/31/2023 12905-Jaoguccy Plate 10/09/2023 60091-Ortpwgbo Plate 12/21/2023 56870-Yksojyeu Plate 03/07/2024 27113-Spavoikr Plate 06/03/2024 66240-Bsttditk Plate 11/18/2024 28268-Slcmvylv Plate 05/08/2025 24227-Cfwzfmwx Plate Each Additional 18123-Klyusvuj Plate Each Additional 10451-Osmdqvlz Plate Each Additional 07/2020 04765-Npcqqylf Plate Each Additional 79561-Emofmjkw Plate Each Additional 08652-Qarfpwct Plate Each Additional 16241-Bzcbbxsr Plate Each Additional 41775-Qgwmvxue Plate Each Additional 01/2021 09079-Moigidpz Plate Each Additional 04/2020 81058-Vuksmkie Plate Each Additional 54173-Gmtgdwin Plate Each Additional 10/2019 02760-Lsscfkef Plate Each Additional 02329-Vpxkxmng Plate Each Additional 07/2018 67567-Oshvvxel Plate Each Additional 76619-Ebzfhgou Plate Each Additional 09/2014 43278-Yofolqzu Plate Each Additional 74228-Vyjjymqd Plate Each Additional 18331-Wieebltz Plate Each Additional 10/2013 08232-Npyexijl Plate Each Additional 12/2012 16463-Fxntxbrw Plate Each Additional 08/2013 80135- Debride <25 sq cm 11/29/2012 52913- Debride <25 sq cm 02/27/2014 99985- Debride <25 sq cm 10/20/2014 12689- Debride <25 sq cm 01/19/2015 73097,Z6041-PQY TENDON SHEATH/LIGAMENT 1 07/11/2016 Next Appt Details Provider Name:Sahil Joe , 08/11/2025 11:00:00 AM, [address] [place], [address], Insurance Providers Payer Name Payer Address Payer Phone Subscriber Number Group Number Insured Name Patient Relationship to Insured Coverage Start Date Coverage End Date Medicare National Govt [employer] [address] [place] [address] [id number] Peggy Bennett Self - patient is the insured 4 [employer] Blue Shield [address] [place] [address] [id number] Peggy Bennett Self - patient is the insured Medical (General) History Medical History History ICD Code anxiety Arthritis depression high blood pressure psychiatric disorder mumps chicken pox numbness knee pain thyroid disorder has hearing aids Nodule of Lung Surgical History Surgery Date(Month/Year) CAD 2010 both eye lids 04/12/18 polyp removal 06/12 oral surgery teeth bridge 09/20/21 cardiac surgery 05/04/25 Hospitalization History Reason Date(Month/Year) fell sprained R ankle xrays taken 0 fell sprained left ankle 10/2020
--- OUTSIDE RECORDS SUMMARY | 2025-05-30 10:45 | XMS_ITS | Encounter Summary ---
Author Organization [facility], Address [address] [place] [address] Phone Care Team Providers Care Log Hauler Name Role Phone Chasity Campbell MD Primary Care Provider [phone] Encounter Details Date Type Department Care Team (Late st Contact Info) Description 10/23/2024 Documentation Only [facility] [address] [place] [address] [place], [place] [address] [place] [address] Social History Tobacco Use Types [...] Visit [facility] [address] Brisa HUNT [address] [place] [address] Zev Wu MD [address] [place] [address] [place] [address] documented as of this encounter Visit Diagnoses Not on filedocumented in this encounter Care Teams Log Hauler Relationship Specialty Start Date End Date Chasity Campbell MD [facility] [place], [place] PCP - General Family Medicine 01/22/24 documented as of this encounter
--- OUTSIDE RECORDS SUMMARY | 2025-05-30 10:45 | XMS_ITS | Encounter Summary ---
Author Organization [facility] Address [address] [place] [address] Phone Care Team Providers Care Radio Host Name Role Phone Glendy Bender MD Primary Care Provider [phone]- [phone] Melissa Campbell MD Primary Care Provider [phone] Encounter Details Date Type Department Care Team (Late st Contact Info) Description 10/30/2019 Ancillary Orders Virtual Department [address] [place] [address] Andreas Powell, RETAIL SALESPERSON [address] [place] [address] Dizziness; Carotid artery dissection Social History Tobacco Use Types Packs/Day Years Used Date Smoking Tobacco: Never Assessed Comments No Sex and Gender Information Value Date Recorded Sex Assigned at Not on file Legal Sex Female 10:04 PM EDT Gender Identity Not on file Sexual Orientation Not on file documented as of this encounter Plan of Treatment Upcoming Encounters Date Type Department Care Team (Late st Contact Info) Description 09/25/2025 10:00 AM EDT Office Visit [facility] Department of Neurology [address] [place] [address] Luis Alberto Perez MBBS [address] [facility] Neurology Dept[address] 4th [place] [address] [email or web address] documented as of this encounter Results * US Carotid Duplex Complete (Bilateral) (10/30/2019 4:23 PM EDT) Anatomical Region Laterality Modality Heart, Thoracic Vasculature, Neck Ultrasound 10/30/2019 4:31 PM EDT Impressions 10/30/2019 4:40 PM EDT No evidence of hemodynamically significant stenosis. No visible plaque on either side. POS - [id number] Narrative 10/30/2019 4:40 PM EDT HISTORY: TIA or CVA, dizziness. COMPARISON: None. CAROTID ULTRASOUND FINDINGS: RIGHT: Carotid artery morphology: Common, internal and external carotid arteries are widely patent. No visible plaque. No significant narrowing of the proximal internal carotid artery compared with the distal internal carotid artery. Peak systolic and diastolic velocity internal carotid artery: Systolic: 98 cm/sec, Diastolic: 35 cm/sec. Values are within normal limits. Vertebral artery: Normal antegrade flow. LEFT: Carotid artery morphology: Common, internal and external carotid arteries are widely patent. No visible plaque. No significant narrowing of the proximal internal carotid artery compared with the distal internal carotid artery. Peak systolic and diastolic velocity internal carotid artery: Systolic: 80 cm/sec, Diastolic: 27 cm/sec. Values are within normal limits. Vertebral artery: Normal antegrade flow. Any stenosis measurement is relative to the distal ICA diameters. Procedure Note Chacho Marks MD - 10/30/2019 HISTORY: TIA or CVA, dizziness. COMPARISON: None. CAROTID ULTRASOUND FINDINGS: RIGHT: Carotid artery morphology: Common, internal and external carotid arteriesare widely patent. No visible plaque. No significant narrowing of theproximal internal carotid artery compared with the distal internal carotidartery. Peak systolic and diastolic velocity internal carotid artery: Systolic:98 cm/sec, Diastolic: 35 cm/sec. Values are within normal limits. Vertebral artery: Normal antegrade flow. LEFT: Carotid artery morphology: Common, internal and external carotid arteriesare widely patent. No visible plaque. No significant narrowing of theproximal internal carotid artery compared with the distal internal carotidartery. Peak systolic and diastolic velocity internal carotid artery: Systolic:80 cm/sec, Diastolic: 27 cm/sec. Values are within normal limits. Vertebral artery: Normal antegrade flow. Any stenosis measurement is relative to the distal ICA diameters. IMPRESSION: No evidence of hemodynamically significant stenosis. No visible plaque oneither side. 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 It is not the complete legal health record.[facility]
--- OUTSIDE RECORDS SUMMARY | 2025-05-30 10:45 | XMS_ITS | Encounter Summary ---
Author Organization [facility] Address [address] [facility] [facility] [address] [place] [address] Phone Care Team Providers Care Radio Presenter Name Role Phone Melissa Campbell MD Primary Care Provider [phone] Encounter Details Date Type Department Care Team (Latest Contact Info) Description 12/23/2024 Transcribe Orders Virtual Department [address] [place] [address] Zev Wu MD [address] [facility] [address] [place] [address] Stage 3a chronic kidney disease (Primary Dx); Benign hypertension; [place] adverse reaction Social History Tobacco Use Types Packs/Day Years [...] Description 09/25/2025 10:00 AM EDT Office Visit [facility] Department of Neurology [address] [place] [address] Luis Alberto Perez MBBS [address] [facility] Neurology Dept[address] 4th [place] [address] [email or web address] documented as of this encounter Results * US Kidneys (12/31/2024 10:40 AM EDT) Anatomical Region Laterality Modality Abdomen, Kidney Ultrasound 12/31/2024 12:2 8 PM EDT Impressions 12/31/2024 12:31 PM EDT No hydronephrosis Narrative 12/31/2024 12:31 PM EDT US KIDNEYS Referring clinician's provided indication for this examination in Epic: Outside Radiology Order; ckd TECHNIQUE: Kidney Ultrasound. COMPARISON: None FINDINGS: Right Kidney: Size: 9.3 cm No stones or hydronephrosis. Simple upper pole cyst measuring 1.6 cm. Left Kidney: Size: 9.9 cm No stones or hydronephrosis. Small simple cysts measure up to 1.6 cm. Bladder: Normal. Procedure Note Casa Garcia MD - 12/31/2024 US KIDNEYS Referring clinician's provided indication for this examination in Epic:Outside Radiology Order; ckd TECHNIQUE: Kidney Ultrasound. COMPARISON: None FINDINGS: Right Kidney: Size: 9.3 cm No stones or hydronephrosis. Simple upper pole cyst measuring 1.6 cm. Left Kidney: Size: 9.9 cm No stones or hydronephrosis. Small simple cysts measure up to 1.6 cm. Bladder: Normal. IMPRESSION: No hydronephrosis us Zev Wu MD IMG US RENAL Final Result documented in this encounter Visit Diagnoses Diagnosis Stage 3a chronic kidney disease- Primary Benign hypertension Essential hypertension, benign [place] adverse reaction Other psychotropic agents causing adverse effect in therapeutic use Stage 3a chronic kidney disease Benign hypertension Essential hypertension, benign [place] adverse reaction Other psychotropic agents causing adverse effect in therapeutic use documented in this encounter Care Teams Radio Presenter Relationship Specialty Start Date End Date Melissa Campbell MD [address] [place] [address] [email or web address] PCP - General Family Medicine 11/13/21 documented as of this encounter Additional Source Comments The information contained in this document represents components of the legal health record. It is not the complete legal health record.[facility]
[2025-05-30 10:51] LABS: INTERNATIONAL NORM RATIO 3.0 (0.9-1.1); Prothrombin Time 35.7 SEC (11.2-13.5)
== END 2025-05-30 10:41 | disposition home or self-care (01) ==
LOC: HO.MMNH2L 10:40
PROVIDERS: Visit Provider Student in an Organized Health Care Education/Training Program
DX: I71.21 Aneurysm of the ascending aorta, without rupture (principal); I35.1 Nonrheumatic aortic (valve) insufficiency; I48.0 Paroxysmal atrial fibrillation
CPT/HCPCS: 36415; 85610